=== PATIENT | female | born 1950 | race Caucasian/White ===

== ENCOUNTER 2018-09-13 09:48 | Inpatient (IN) ==
--- NOTE | 2018-08-29 14:24 | PAT Medication Instructions ---
Medication Instructions Date of Service August 29, 2018 Home Medications alprazolam 0.25 mg PO HS PRN amitriptyline 10 mg PO QAM levothyroxine 100 mcg PO QAM lisinopril 5 mg PO HS pravastatin 10 mg PO HS tramadol 50 - 100 mg PO Q6H PRN vitamins A,C,Y-ybdc-hnucen [PreserVision AREDS] 1 cap PO QAM STOP taking 2 weeks before surgery vitamins A,C,X-degr-vbpfbj [PreserVision AREDS] 1 cap PO QAM Take morning of surgery With a small sip of water, OTHERWISE NOTHING TO EAT OR DRINK AFTER MIDNIGHT: amitriptyline 10 mg PO QAM levothyroxine 100 mcg PO QAM tramadol 50 - 100 mg PO Q6H PRN (if needed, may be taken up to four hours before surgery) Take evening before surgery alprazolam 0.25 mg PO HS PRN (if needed) lisinopril 5 mg PO HS pravastatin 10 mg PO HS tramadol 50 - 100 mg PO Q6H PRN (if needed) Other Notes If you have any questions please call us at [phone] or [phone] or [phone] or [phone]
--- NOTE | 2018-08-29 14:54 | Anesthesiology Consultation ---
Date of Service August 29, 2018 Assessment & Plan (1) Encounter for pre-operative examination: Chart Review Chart Review: Acceptable Risk for Surgery and Patient seen in Pre Admission Testing Teaching & Discussion Instructed NPO after midnight before surgery, except medications with 15 cc of water. Medication instructions provided according to the PAT guidelines. History Surgery Operation Date: 09/13/18 11:40 Proposed Procedures p Robotic Left Video Assisted Thoracoscopy with Left Upper Lobe Wedge Resection, Possible Left Upper Lobectomy with Medial Lymphadenectomy - Luis Armando Mckenzie MD, FACS Height/Weight Height: 5 ft 2.75 in Weight: 69.3 kg Allergies Allergy/AdvReac Type Severity Reaction Status Date / Time No Known Allergies Allergy Verified 08/29/18 14:18 Medications Home Medications Medication Instructions Recorded Confirmed Last Taken alprazolam 0.25 mg PO HS PRN 08/29/18 08/29/18 Unknown amitriptyline 10 mg PO QAM 08/29/18 08/29/18 Unknown levothyroxine 100 mcg PO QAM 08/29/18 08/29/18 Unknown lisinopril 5 mg PO HS 08/29/18 08/29/18 Unknown pravastatin 10 mg PO HS 08/29/18 08/29/18 Unknown tramadol 50 - 100 mg PO Q6H PRN 08/29/18 08/29/18 Unknown vitamins A,C,Y-ipza-gauocm 1 cap PO QAM 08/29/18 08/29/18 Unknown [PreserVision AREDS] Past Medical History Medical History Anxiety Hyperlipidemia Hypertension Hypothyroidism SURGICALLY INDUCED. TOTAL THYROIDECTOMY 2/2 GOITER Mediastinal adenopathy Exercise / Class Metabolic Activity II 4-5 Yardwork/Stairs/Walk up hill (Denies CP or SOB with stairs, very active maintaining her home and property) Past Family History Family History Uncle FHx: prostate cancer Grandfather FHx: prostate cancer Aunt FHx: breast cancer Father FHx: lung cancer Mother FHx: thyroid cancer Past Surgical History Surgical History H/O ankle fusion RIGHT History of bronchoscopy History of thyroidectomy, total R/T GOITERS History of tonsillectomy History of total hip arthroplasty LEFT S/P GUILLERMO-BSO Past Anesthesia History No Hx of Anesthesia Complications and No Family Hx of Anesthesia Complications History of PONV No Hx of PONV and No Hx of Motion Sickness Social History Smoking Status: Current every day smoker tobacco type: cigarettes Smoking cigarettes per day: 6 CIGS DAILY X 40 YEARS Do You Dip or Chew Tobacco: No Hx Alcohol Use: No Hx Substance Use: No substance use type: does not use Review of Systems Pt denies any recent chest pain, shortness of breath, palpitations, cough, fever or URI. Physical Exam Vital Signs BP: 123/74 P: 72bpm SPO2: 96% RA T: 98.4 F R: 18 ENMT Mouth: + dentures (partial lower) and + chipped teeth (one upper L bicuspid); no loose teeth Thyromental Distance: < 3.5 Finger Breadths (2.5) Mallampati Class: III Neck normal visual inspection; neck extension not limited Respiratory normal respiratory effort Auscultation: lungs clear to auscultation bilaterally Cardiovascular Rate/Rhythm: regular rate and regular rhythm Heart Sounds: no murmur Vessels: no carotid bruit Extremities: no edema Testing Laboratory Results 08/29/18 15:01 08/29/18 15:01 Electrocardiogram Date: 08/29/18 Findings: + NSR @ (69) Left axis deviation. Other Testing Chest CT 07/10/18 Suspicious elongated nodular density within the left lung apex and enlarged lymph nodes in the AP window. Further evaluation with PET/CT and/or tissue sampling is recommended. PET Scan 07/24/18 Two adjacent enlarged hypermetabolic lymph nodes in the left aspect of the AP window of the mediastinum. Adjacent left suprahilar hypermetabolic nodule measures 1.2 x 1.2 cm. No additional large mediastinal lymph nodes. No enl arged or hypermetabolic axillary lymph nodes. Findings are concerning for neoplastic or metastatic disease, recommend pulmonary consultation and tissue sampling. 2.2 x 1.5 cm ovoid left paratracheal nodule/mass with mildly increased metabolic activity and associated coarse calcification. This may reflect residual thyroid tissue inferior to the typical thyroid location, or could potentially represent a high left paratracheal lymph node with associated calcification. Given increased metabolic activity, neoplasm or metastatic diseases are not excluded, recommend further evaluation with ultrasound and potential tissue sampling. Irregular elongated nodular density in the anterior left lung apex measuring approximately 2.5 x 0.6 cm, unchanged in appearance from the recent prior study, demonstrating subtle metabolic activity minimally above mediastinal blood pool on delayed imaging. This is nonspecific and may be infectious or inflammatory nature or represent mucous plugging of distal dilated bronchial, malignancy is not definitively excluded. No other evidence of potential metastatic disease outside of these regions.
[2018-08-29 15:33] LABS: Basophils # (auto) 0.03 K/uL (0-0.2); Basophils % (auto) 0.3 %; Eosinophils # (auto) 0.15 K/uL (0-0.5); Eosinophils % (auto) 1.6 %; Hematocrit (blood only) 41.4 % (37-47); Hemoglobin 13.7 g/dL (12.0-16.0); Immature Granulocytes # (auto) 0.02 K/uL (0.00-0.02); Immature Granulocytes % (auto) 0.2 %; Lymphocytes # (auto) 2.52 K/uL (1.2-3.4); Lymphocytes % (auto) 27.4 %; Mean Corpuscular Hgb Conc 33.1 g/dL (32-36); Mean Corpuscular Volume 92.4 fL (80-100); Mean Platelet Volume 11.5 fL (7.4-10.4); Monocytes % (auto) 6.5 %; Neutrophils # (auto) 5.89 K/uL (1.4-6.5); Platelet Count 198 K/uL (130-400); RDW Coefficient of Variation 14.5 % (11.5-14.5); Red Blood Count 4.48 M/uL (4.2-5.4); White Blood Count 9.21 K/uL (4.8-10.8)
[2018-08-29 15:44] LABS: BUN Creatinine Ratio 16.7 (10-20); Calcium 8.6 mg/dl (8.5-10.1); Creatinine Clr Calc Pharmacy 69.4 ml/min; Est GFR (African American) 101.7; Est GFR (Non-African American) 87.8; Potassium 4.1 mmol/L (3.5-5.1)
[~2018-09-13 09:48] MED LIST: LR 15ML/HR IV SCH; MIDAZOLAM HCL 1 MG/ML 2ML VIAL ONE; fentaNYL citrate 100 MCG/2 ML VIAL ONE
--- NOTE | 2018-09-13 10:23 | History & Physical Bridge Note ---
Date of Service September 13, 2018 History & Physical Bridge Note I have examined the patient, reviewed the History & Physical and in the interval since the performance of the History & Physical I have noted the following changes of clinical significance: no changes noted
[2018-09-13] MEDS ORDERED: SODIUM CHLORIDE 0.9% PF 50 ML VIAL ONE (10:47)
[2018-09-13] MEDS ORDERED: BUPIVACAINE 0.5 % 5 MG/1 ML MPF 30ML VIAL ONE (10:47)
[2018-09-13] MEDS ORDERED: BUPIVACAINE LIPOSOME 1.3% 266 MG/20 ML VIAL ONE (10:48)
[2018-09-13] MEDS ORDERED: CEFAZOLIN 2000MG 2,000 MG/15 ML SYR IV ONE (11:50)
[2018-09-13] MEDS ORDERED: DEXAMETHASONE SOD INJ 4 MG/ML VIAL ONE (12:14)
[2018-09-13] MEDS ORDERED: LIDOCAINE HCL 2% 2 ML VIAL/AMP(20MG/ML) INFIL ONE (12:14)
[2018-09-13] MEDS ORDERED: GLYCOPYRROLATE 0.2 MG/ML VIAL ONE (12:14)
[2018-09-13] MEDS ORDERED: NEOSTIGMINE METHYLSULFATE 5 MG/5 ML SYR ONE (12:14)
[2018-09-13] MEDS ORDERED: PHENYLEPHRINE 100MCG/ML 5ML SYR ONE (12:14)
[2018-09-13] MEDS ORDERED: ROCURONIUM BROMIDE 10 MG/ML 5 ML VIAL ONE ×2 (12:14→15:39)
[2018-09-13] MEDS ORDERED: ONDANSETRON INJ 2 MG/ML 2 ML VIAL ONE (12:14)
[2018-09-13] MEDS ORDERED: PROPOFOL IV EMULSION 10 MG/ML 20 ML VIAL IV ONE (12:14)
[2018-09-13] MEDS ORDERED: ePHEDrine sulfate 50 MG/ML SYR ONE (12:14)
[2018-09-13] MEDS ORDERED: CEFAZOLIN 250 MG/ML 1 GM VIAL ONE (12:14)
[2018-09-13] MEDS ORDERED: SURGICEL ABSORB HEMOSTAT 2IN X 14IN TOP ONE (12:37)
--- NOTE | 2018-09-13 13:34 | Post Operative Brief Note ---
Immediate Post Op Note v1 Date of Surgery September 13, 2018 Pre & Post Diagnosis Operation Date: 09/13/18 11:40 Pre-Op Diagnosis: Left Lung Nodule; Mediastinal Adenopathy Post-Op Diagnosis: Left Lung Nodule; Mediastinal Adenopathy Procedure Operation Date: 09/13/18 11:40 Actual Procedures p Robotic Left Video Assisted Thoracoscopy with Left Upper Lobe Wedge Resection with Mediastinal Lymphadenectomy(Left) - Luis Armando Mckenzie MD, FACS Surgeon Luis Armando Mckenzie MD, FACS Associate Project Manager Brian AMARO Estimated Blood Loss 50 Findings Consistent with Post-Op Diagnosis Drains Chest Tube and Toscano Catheter
[2018-09-13] MEDS ORDERED: METOCLOPRAMIDE HCL INJ 5 MG/ML 2 ML VIAL IV ONE (13:55)
[2018-09-13] MEDS ORDERED: KETOROLAC TROMETHAMINE 15 MG/ML VIAL IV PRN (14:09)
[2018-09-13] MEDS ORDERED: ATROPINE SULFATE 0.1 MG/ML 10ML SYR IV PRN (14:09)
[2018-09-13] MEDS ORDERED: HYDROmorphone INJ 1 MG/ML SYRINGE ONE ×2 (14:09→14:44)
[2018-09-13] MEDS ORDERED: ONDANSETRON INJ 2 MG/ML 2 ML VIAL IV PRN ×2 (14:09→15:52)
[2018-09-13] MEDS: HYDROmorphone INJ 1 MG/ML SYRINGE IV PRN ×8 (14:09→15:00)
--- NOTE | 2018-09-13 14:09 | XRay Report ---
XR chest 1V portable HISTORY: 68 years-old Female left lung wedge resection follow-up study in a patient with recent left -sided wedge resection. COMPARISON: Chest CT 07/10/2018 TECHNIQUE: Portable AP view of the chest FINDINGS: Cardiac silhouette is enlarged, unchanged. Dense mitral annular calcifications are noted. Postoperati ve changes of the left lung with left-sided chest tube terminating adjacent to left lung apex. Small left apical pneumothorax with pleural separation of 1.1 cm. Bilateral interstitial coarsening without overt pulmonary edema or large pleural effusion. Degenerative changes of the shoulders and spine. IMPRESSION: 1. Postoperative changes of the left lung with left-sided chest tube terminating adjacent to the apex . 2. Small left apical pneumothorax. 3. Cardiomegaly. The above report was generated using voice recognition software. It may contain grammatical, syntax o r spelling errors. Electronically signed by: Fredi Maldonado M.D. 09/13/2018 2:08 PM
[2018-09-13] MEDS ORDERED: KETOROLAC 30 MG/ML VIAL ONE (14:44)
--- NOTE | 2018-09-13 15:40 | Anesthesiology Progress Note ---
Date of Service September 13, 2018 Anesthesia Post Procedure Vital Signs Vital Signs: Temp Pulse Resp BP BP Pulse Ox 09/13/18 15:35 80 18 129/80 98 09/13/18 15:25 36.3 C L 81 24 129/80 99 09/13/18 15:15 73 18 138/67 98 09/13/18 15:05 75 16 141/70 H 97 09/13/18 14:55 67 14 141/62 H 97 09/13/18 14:45 56 L 14 143/70 H 98 09/13/18 14:35 63 17 140/68 98 09/13/18 14:25 60 12 142/66 H 95 09/13/18 14:15 58 L 17 152/73 H 100 09/13/18 14:05 63 18 129/63 100 09/13/18 13:55 69 17 158/78 H 100 09/13/18 13:48 36.2 C L 72 18 166/80 H 95 09/13/18 10:10 36.5 C 69 16 137/71 98 Pain Intensity Left Back: Pain Intensity: 4 Transfer of Care Handoff Completed per policy Notes Mental Status: alert / awake / arousable Patient Amnestic to Procedure: Yes Nausea / Vomiting: adequately controlled Pain: adequately controlled Airway Patency, RR, SpO2: stable & adequate BP & HR: stable & adequate Hydration State: stable & adequate Anesthetic Complications: no major complications apparent
[2018-09-13] MEDS ORDERED: MoRPHine SULFATE 2 MG/ML CARP IV PRN (15:52)
[2018-09-13] MEDS ORDERED: ALPRAZolam 0.25 MG TABLET PO PRN (15:52)
[2018-09-13] MEDS: D5W AND 1/2NSS 1,000 ML IV SCH (17:25)
[2018-09-13] MEDS: OXYCODONE HCL IR 5 MG TAB (IMMEDIATE RELEASE) PO PRN (17:28)
[2018-09-13] MEDS: ACETAMINOPHEN 1,000 MG/100 ML VIAL IV SCH (18:09)
[2018-09-13] MEDS: DOCUSATE SODIUM 100 MG CAP PO SCH (20:22)
[2018-09-13] MEDS ORDERED: PRAVASTATIN SOD 10 MG TAB PO SCH (21:00)
[2018-09-13] MEDS ORDERED: LISINOPRIL 5 MG TAB PO SCH (21:00)
--- NOTE | 2018-09-13 21:06 | Operative Report ---
DATE OF OPERATION: 09/13/2018 PREOPERATIVE DIAGNOSIS: Left upper lobe nodule with hilar adenopathy. POSTOPERATIVE DIAGNOSIS: Left upper lobe nodule with hilar adenopathy. PROCEDURE: 1. Robot-assisted left thoracoscopic wedge resection left upper lobe apex. 2. Biopsy of left hilar nodes. SURGEON: Luis Armando Mckenzie MD. COMPUTER ASSISTANT: PREM Ghotra and tomás Dos Santos drum stock clerk 3. ANESTHESIA: General anesthesia, endotracheal intubation with a double lumen tube. SPECIFICS OF PROCEDURE AND FINDINGS: Ms. Conley is a 68-year-old female who is an active cigarette smoker that I saw her in the office just last week, she presented with hypermetabolic mass that was actually linear in configuration. She had marked hypermetabolic activity in her hilar nodes. This was on the left. She underwent an endobronchial ultrasound which showed no evidence of metastatic disease in her mediastinal nodes. She presented to me and we had a long talk about this. I explained that there are different ways to get diagnostic tissue; however, the navigational bronchoscopy and endobronchial ultrasound did not give a diagnosis for the hypermetabolic nodes or the mass which is not surprising. I stated, we could offer her a [place] procedure or we could do a thoracoscopy. I elected to do this with a robot as I think that the lymph node dissection is better. On 09/13/2018, patient brought to the operating room and underwent uncomplicated robotic-assisted surgery. In going in, I did not see an actual mass, but I did a generous wedge resection the entire apex of the upper lobe and I did not palpate any abnormalities. The abnormality seen on CT scan was definitely included in our dissection. The frozen section was no mass really to freeze. I then biopsied a huge level 5 lymph node as well as level 10, level 6 and a level 11 lymph node. The level 10 lymph node appeared to be simply reactive. However, the level 5 showed either lymphoma or perhaps even a small cell lung carcinoma. It was definitely not a nonsmall cell lung cancer. We had a long talk about this and I believe that we would have nothing further to offer by doing a lobectomy. For this reason, we closed it. We did do an intercostal block. She had no air leak at the conclusion of the case. She lost very little in the way of blood. She tolerated it well. DESCRIPTION OF PROCEDURE: The patient brought to operating room and laid in supine position. General anesthesia induced. Endotracheal intubation was performed with a double lumen tube and the tube was positioned bronchoscopically. The patient was then turned in the right lateral decubitus position. The left chest prepped and draped in usual sterile fashion. Appropriate timeout have been called and prophylactic antibiotics given, incision was made just a bit anterior to the mid axillary line in the eighth interspace. I had mixed 266 mg of Exparel in 20 mL of solution with 30 mL of 0.5% bupivacaine and 250 mL of normal saline. I injected each of my port sites and did it with this before opening and then also did a block from the 2nd to the 11th rib under thoracoscopic guidance. Upon entering the chest and seen that we were in proper position, carbon dioxide was insufflated. This collapsed the lung quite nicely. There were no adhesions noted. An 8 mm port was placed anteriorly and another 8 mm port was placed posteriorly and then even further posteriorly in about the eighth interspace a 5 mm port was placed. The dairy and food laboratory assistant's port was placed just above the diaphragm anteriorly. We then entered the pleural cavity and really there were no adhesions. I grasped the upper lobe and we did a generous wedge resection. I did not feel any abnormalities nor did I see any. We hand this off for frozen section, but while waiting for this, we came upon a very large level 10 node on the left which we removed. There was even a larger level 5 node, and I excised this in its entirety and gave it for frozen section. While waiting for this, I also took a level 6 node and then retracted the lung anteriorly and started cleaning off the artery and got a level 11 node. Frozen section came back as definitely not a nonsmall cell lung carcinoma. I had discussed this in detail with the patient and made the case for performing a lobectomy with mediastinal lymphadenectomy should this prove to be a nonsmall cell; however, Dr. Kristy Loco from Pathology felt we were either dealing with a lymphoma or perhaps a small cell lung carcinoma. For this reason, we stopped. A 24-Yoruba chest tube was placed in the dairy and food laboratory assistant's port and directed towards the apex. It was held in place with heavy silk suture. A 4-0 Monocryl was used in running subcuticular fashion to approximate the wound edges of all of the other 4 incisions. The patient really did not have an air leak. Her lung expanded nicely. She tolerated it well. She was extubated and transported to the postanesthesia care unit after we had placed antimicrobial dressings. She tolerated it well. I attest to the content of the Intraoperative Record and any orders documented therein. Any exception s are noted below.
[2018-09-13] MEDS: METOCLOPRAMIDE HCL INJ 5 MG/ML 2 ML VIAL IV SCH (21:59)
[2018-09-14] MEDS: ACETAMINOPHEN 1,000 MG/100 ML VIAL IV SCH ×2 (01:08→08:35)
[2018-09-14] MEDS: D5W AND 1/2NSS 1,000 ML IV SCH (02:46)
[2018-09-14] MEDS: METOCLOPRAMIDE HCL INJ 5 MG/ML 2 ML VIAL IV SCH (05:20)
[2018-09-14] MEDS ORDERED: LEVOTHYROXINE SODIUM 100 MCG TABLET PO SCH (06:30)
[2018-09-14 07:10] LABS: Partial Thromboplastin Time 27.1 Seconds (21.0-31.0); Prothrombin Time 10.3 Seconds (9.0-12.0)
--- NOTE | 2018-09-14 07:15 | XRay Report ---
XR chest 1V portable HISTORY: 68 years-old Female left wedge resection status post left-sided wedge resection COMPARISON: Chest radiograph 09/13/2018 TECHNIQUE: Portable AP view of the chest FINDINGS: Postoperative changes of the left lung. The left-sided chest tube has been slightly retracted, distal tip terminating adjacent to the left upper lung, previously at the apex. The previously described le ft apical pneumothorax is not definitively seen on today's study. Persistent right lung base opacitie s suggest probable atelectasis. Cardiac silhouette appears unchanged. Degenerative changes of the barbie ulders and spine. No large pleural effusion. IMPRESSION: 1. Postoperative changes of the left lung with resolution of the previously noted small left apical p neumothorax. 2. Chest tube terminates adjacent to the left upper lung. The above report was generated using voice recognition software. It may contain grammatical, syntax o r spelling errors. Electronically signed by: Fredi Maldonado M.D. 09/14/2018 7:14 AM
[2018-09-14] MEDS: DOCUSATE SODIUM 100 MG CAP PO SCH (08:35)
[2018-09-14] MEDS ORDERED: AMITRIPTYLINE HCL 10 MG TAB PO SCH (09:00)
[2018-09-14] MEDS ORDERED: ENOXAPARIN INJ 40 MG/0.4 ML SYR SQ SCH (09:00)
[2018-09-14] MEDS ORDERED: CEROVITE ADV FORMULA TAB PO SCH (09:00)
[2018-09-14] MEDS: OXYCODONE HCL IR 5 MG TAB (IMMEDIATE RELEASE) PO PRN (09:10)
--- NOTE | 2018-09-14 10:52 | XRay Report ---
XR chest 1V portable HISTORY: 68 years-old Female chest tube removal status post removal of the left-sided chest tube COMPARISON: Chest radiograph of same day at 6:36 AM TECHNIQUE: Portable AP view of the chest FINDINGS: Cardiomediastinal and hilar silhouettes are within normal limits. Unchanged right basilar opacities s uggestive of atelectasis. Postoperative changes of the left upper lung. Status post removal of left-s ided chest tube. No pneumothorax identified. Blunting of the costophrenic angles may reflect trace ef fusions. Bones appear grossly intact. IMPRESSION: Postoperative changes of the left lung. Status post removal of the left-sided chest tube without pneumothorax identified. The above report was generated using voice recognition software. It may contain grammatical, syntax o r spelling errors. Electronically signed by: Fredi Maldonado M.D. 09/14/2018 10:50 AM
--- NOTE | 2018-09-14 23:07 | Discharge Summary ---
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 HOSPITAL COURSE: This patient is a 68-year-old female who has been smoking her entire adult life. She is found to have a small mass in her left upper lobe, more importantly had hypermetabolic lymphadenopathy. She underwent endobronchial ultrasound and a navigational bronchoscopy at her local hospital, but the result showed no evidence of malignancy. I agreed with her anesthesiology medical doctor that we were most certainly dealing with some sort of neoplasm; however, question about how to make a diagnosis was discussed. Her left upper lobe lesion was not very impressive. It was a linear, mildly hypermetabolic area but her level 5, 6 and 10 lymph nodes were very large and hypermetabolic. For this reason, I elected to proceed with a wedge resection and a lymph node biopsy. I told her should this be a nonsmall cell lung carcinoma, we would proceed with a lobectomy. On 09/13/2018, the patient underwent an uncomplicated robot-assisted thoracoscopic wedge resection of the left upper lobe apex as well as a fairly complete lymphadenectomy of the hilum. I removed the level 5, 6 and 10 lymph nodes anteriorly almost in their entirety. We cleaned out the entire aortopulmonary window. I also biopsied the level 11 node from posterior. Frozen section on these showed a possible lymphoma versus a small cell lung carcinoma. At this point, I elected not to proceed as it did not appear we were dealing with a nonsmall cell lung carcinoma. We did not proceed with a lobectomy. The patient tolerated it well with negligible blood loss. She had no air leak. I removed her chest tube the following morning. We did do an Exparel block and she had excellent pain control. I was quite pleased with her. She is ambulating in the hallway on room air. I discharged her on postop day #1. I will see her back next week to go over her final pathology report.
== END 2018-09-14 10:58 | disposition home or self-care (01) | DRG 164 ==
LOC: ASU 09:48 → 3N 13:40